=== PATIENT | female | born 1970 | race Caucasian/White ===

== ENCOUNTER → 2016-04-26 | Outpatient (CLI) | payer OTHER | END | disposition home or self-care (01) | LOC: LABWHC1 14:37 | DX: J11.1 Influenza due to unidentified influenza virus with other respiratory manifestations (principal) | CPT/HCPCS: 87502 ==

== ENCOUNTER → 2016-05-06 | Outpatient (CLI) | payer OTHER ==
[2016-05-06 15:51] LABS: Basophils # (A) 0.1 k/uL (0-0.2); Basophils % (A) 1 %; CHCM 32.8; Eosinophils # (A) 0.1 k/uL (0-0.7); Eosinophils % (A) 2 %; HCT 39.7 % (34.0-46.0); HDW 2.62; HGB 13.2 gm/dL (11.4-16.0); Luc # (Auto) 0.22; Luc % (Auto) 3; Lymphocytes # (A) 1.8 k/uL (1.0-4.8); Lymphocytes % (A) 21 %; MCH 28.5 pg (25.0-35.0); MCHC 33.2 g/dL (31.0-37.0); MCV 85.7 fL (80.0-100.0); Mean Platelet Volume 7.9; Monocytes # (A) 0.3 k/uL (0-1.0); Monocytes % (A) 4 %; Neutrophils % (A) 71 %; RBC 4.63 m/uL (3.80-5.40); RDW 14.1 % (11.5-15.5); WBC 8.5 k/uL (3.8-10.6); WBC (Perox) 9.05
[2016-05-06 16:04] LABS: Partial Thromboplastin Time 28.9 sec (22.0-30.0); Prothrombin Time 10.3 sec (9.0-12.0)
[2016-05-06 16:16] LABS: Anion Gap 11 mmol/L; Blood Urea Nitrogen 13 mg/dL (7-17); Calcium 9.7 mg/dL (8.4-10.2); Carbon Dioxide 23 mmol/L (22-30); Chloride 106 mmol/L (98-107); Glucose 84 mg/dL (74-99); Non-African American GFR(MDRD) >60 (>60 ml/min/1.73 sqM); Potassium 4.5 mmol/L (3.5-5.1); Sodium 140 mmol/L (137-145)
== END | disposition home or self-care (01) ==
LOC: LABPAT 15:15
PROVIDERS: ATTEND Obstetrics & Gynecology
DX: Z01.810 Encounter for preprocedural cardiovascular examination (principal); I48.91 Unspecified atrial fibrillation; R58 Hemorrhage, not elsewhere classified
CPT/HCPCS: 80048; 85025; 85610; 85730

== ENCOUNTER 2016-05-12 06:23 | Observation (INO) | payer OTHER ==
[2016-05-06 15:43] VITALS: BMI 32.0
--- NOTE | 2016-05-11 17:13 | P.HPOB ---
History of Present Illness H&P Date: 05/11/16 Chief Complaint: Menorrhagia 45 year old presents for Total Laparoscopic Hysterectomy and BSO with Da Nila. She has been suffering with periods every 2-6 weeks, heavy with clots for a few years. She tried medication which is no longer helping. Her uterus is 9cm with a 3.9cm central fibroid. Review of Systems All systems: negative Constitutional: Denies chills, Denies fever Eyes: denies blurred vision, denies pain Ears, nose, mouth and throat: Denies headache, Denies sore throat Cardiovascular: Denies chest pain, Denies shortness of breath Respiratory: Denies cough Gastrointestinal: Denies abdominal pain, Denies diarrhea, Denies nausea, Denies vomiting Genitourinary: Denies dysuria, Denies hematuria Musculoskeletal: Denies myalgias Integumentary: Denies pruritus, Denies rash Neurological: Denies numbness, Denies weakness Psychiatric: Denies anxiety, Denies depression Endocrine: Denies fatigue, Denies weight change Past Medical History Past Medical History: Atrial Fibrillation Additional Past Medical History / Comment(s): hx. of a-fib in 1999, occasional palpitations History of Any Multi-Drug Resistant Organisms: None Reported Past Surgical History: Breast Surgery, Tonsillectomy Additional Past Surgical History / Comment(s): several breast biopsies Past Anesthesia/Blood Transfusion Reactions: No Reported Reaction Past Psychological History: No Psychological Hx Reported Smoking Status: Never smoker Past Alcohol Use History: Rare Past Drug Use History: None Reported - Past Family History Mother Family Medical History: Cancer Medications and Allergies Home Medications Medication Instructions Recorded Confirmed Type Meclofenamate Sodium 100 mg PO TID PRN 05/06/16 05/06/16 History Allergies Allergy/AdvReac Type Severity Reaction Status Date / Time bee pollen Allergy Anaphylaxis Verified 05/06/16 15:36 Exam Osteopathic Statement: *. No significant issues noted on an osteopathic structural exam other than those noted in the History and Physical/Consult. Heart: RRR Lungs: CTAB Abdomen: soft, nontender Extremeties: neg jie's - OBG Physical Exam Breast: both: normal (no masses) Abdomen: bowel sounds normal, no diffuse tenderness, no bruit present, no guarding noted, no hepatomegaly, no splenomegaly, no mass Vulva: both: normal Vagina: normal moisture, no discharge Cervix: no lesion, no discharge Uterus: normal size, normal contour Adnexa: both: normal Anus/Rectum: normal perianal skin, no rectal mass, no hemorrhoids, heme negative Assessment and Plan (1) Menorrhagia Status: Acute Plan: 1. TLH BSO with da nila
[~2016-05-12 06:23] MED LIST: DEXAMETHASONE SOD PHOSPHATE 10 MG/ML 1 ML VIAL IV ONE; MIDAZOLAM 2 MG/2 ML VIAL IV PRN; ONDANSETRON 4 MG/2 ML VIAL IVP ONE; SCOPOLAMINE 1.5MG/72HR PATCH TRANSDERM ONE; ceFAZolin 2 GM in SODIUM CHLORIDE 0.9% 100 ML IVPB ONE
[2016-05-12 06:35] VITALS: RESP 16
[2016-05-12] MEDS: LIDOCAINE 1% 20 ML VIAL (10MG/ML) FOR IV START INTRADERMA PRN ×2 (06:35→06:36)
[2016-05-12] MEDS: LACTATED RINGERS 1,000 ML IV SCH ×2 (06:36→23:47)
[2016-05-12] MEDS ORDERED: fentaNYL (PF) 50 MCG/ML 2 ML AMP ONE (07:04)
[2016-05-12] MEDS ORDERED: KETOROLAC 30 MG/ML 1 ML VIAL ONE (07:04)
[2016-05-12] MEDS ORDERED: NEOSTIGMINE 1 MG/ML 10 ML VIAL ONE (07:04)
[2016-05-12] MEDS ORDERED: SUCCINYLCHOLINE CHLORIDE 100 MG/5 ML SYR IV ONE (07:04)
[2016-05-12] MEDS ORDERED: GLYCOPYRROLATE 0.2 MG/ML 2 ML VIAL ONE (07:04)
[2016-05-12] MEDS ORDERED: LIDOCAINE 1% INJ 10MG/ML (20 ML MDV) ONE (07:04)
[2016-05-12] MEDS ORDERED: PROPOFOL 10 MG/ML 20 ML VIAL IV ONE (07:04)
[2016-05-12] MEDS ORDERED: ROCURONIUM BROMIDE 10 MG/ML 10 ML VIAL IV ONE (07:04)
[2016-05-12] MEDS ORDERED: MIDAZOLAM 2 MG/2 ML VIAL ONE (07:04)
[2016-05-12] MEDS ORDERED: BUPIVACAINE (PF) 0.25% 30 ML VIAL SQ ONE (07:53)
--- NOTE | 2016-05-12 08:28 | P.OP ---
Date of Procedure: 05/12/16 Preoperative Diagnosis: 1. Menorrhagia Postoperative Diagnosis: 1. Menorrhagia Procedure(s) Performed: Total laparoscopic hysterectomy bilateral salpingo-oophorectomy using da Kelly Anesthesia: MICHELLE Surgeon: Abby Rm Culinary Arts Teacher #1: Negrito Delacruz Estimated Blood Loss (ml): 20 IV fluids (ml): 700 Urine output (ml): 100 Pathology: other (Uterus, cervix, bilateral tubes and ovaries) Condition: stable Disposition: PACU Operative Findings: Normal uterus tubes and ovaries Description of Procedure: Patient taken the operating room where general anesthesia was obtained without difficulty. She is prepped and draped in normal sterile fashion dorsal lithotomy position, legs placed in the Sg stirrups. Weighted speculum placed in the vagina and the anterior lip the cervix was grasped with single- tooth tenaculum. The uterus sounded to 8 cm and the cervix diameter was 3.5 cm. The appropriate manipulator tip and ring were placed on the Maribel manipulator. The Maribel manipulator was then placed in the uterus. Pool catheter was also placed. Attention was then turned to the abdomen and gloves were changed. A 5 mm supraumbilical incision was made the scalpel and a 5 mm optical trocar was placed under direct visualization. 10 cm to the right of this and 2 cm down a 5 mm incision was made and 8 mm da Kelly port was placed under direct visualization. Same measurements on the opposite side of the patient's abdomen, the 5 mm incision was made and 8 mm da Kelly port was placed under direct visualization. In the left upper quadrant a 10 mm incision was made and a 10 mm optical trocar was placed under direct visualization. The 5 mm optical trocar was then replaced with the 8 mm da Kelly camera port. The robot was docked on patient's right side. The camera was introduced and then the monopolar curved scissor and [place] bipolar placed under direct visualization. I broke scrub and went to the physician console. The left infundibulopelvic ligament was cauterized with the [place] bipolar and cut with monopolar curved scissors. The left round ligament was cauterized with the [place] bipolar and cut with monopolar curved scissors. The posterior leaf of the broad ligament was taken down using the monopolar curved scissors. Anterior leaf of the broad ligament was then taken down using the monopolar curved scissors. The uterine artery was cauterized with the [place] bipolar and cut with monopolar curved scissors. The bladder flap was then started using the monopolar curved scissors. Attention was then turned to the right side of the patient's anatomy and the right infundibular pelvic ligament was cauterized with the [place] bipolar and cut with monopolar curved scissors. The right round ligament was cauterized with the [place] bipolar and cut with monopolar curved scissors. Posterior leaf of the broad ligament was taken down using the monopolar curved scissors and the anterior leaf was taken down using the monopolar curved scissors. The uterine artery was cauterized the [place] bipolar cut with monopolar curved scissors. The bladder flap was then finished on this side. Anterior colpotomy was made using the monopolar curved scissors. The rest of the uterus was from the vaginal cuff by following the ring around with the monopolar curved scissors through the uterosacral ligaments back to the anterior portion. Once the uterus and cervix were amputated they were pulled through the vaginal cuff. Hemostasis was assured. The instruments were changed for the Cardier forcep and the wilfrido suture cut. The vaginal cuff was then closed using O stratafix barbed suture in a running fashion. Hemostasis was again assured and the pelvis was irrigated. All instruments were removed from the abdomen and the robot was undocked. I scrubbed back in to perform a cystoscopy. There were jets from both ureteral orifices. The abdominal incisions were closed with 4-0 Vicryl in a subcuticular fashion. Patient tolerated the procedure well, sponge and instrument counts correct 2 and she was taken to recovery room in stable condition condition
[2016-05-12] MEDS: HYDROmorphone 1 MG/ML 1 ML SYRINGE IVP PRN ×4 (09:09→09:40)
[2016-05-12] MEDS ORDERED: ONDANSETRON 4 MG/2 ML VIAL IVP ONE (09:16)
[2016-05-12] MEDS ORDERED: Acetaminophen-Codeine 300-30mg TAB PO PRN (10:36)
[2016-05-12] MEDS ORDERED: SIMETHICONE 80 MG CHEWABLE PO PRN (10:36)
[2016-05-12] MEDS ORDERED: diphenhydrAMINE 50 MG/ML 1 ML VIAL IVP PRN (10:36)
[2016-05-12] MEDS ORDERED: METOCLOPRAMIDE 5 MG/ML 2 ML VIAL IVP PRN (10:36)
[2016-05-12] MEDS ORDERED: IBUPROFEN 600 MG TAB PO PRN (10:36)
[2016-05-12] MEDS ORDERED: ONDANSETRON 4 MG/2 ML VIAL IVP PRN (10:36)
[2016-05-12] MEDS: KETOROLAC 30 MG/ML 1 ML VIAL IVP PRN (14:59)
[2016-05-12] MEDS ORDERED: TEMAZEPAM 7.5 MG CAP PO PRN (16:14)
[2016-05-12] MEDS: Acetaminophen-Codeine 300-30mg TAB PO PRN (23:47)
[2016-05-13] MEDS: Acetaminophen-Codeine 300-30mg TAB PO PRN (06:51)
[2016-05-13] MEDS: KETOROLAC 30 MG/ML 1 ML VIAL IVP PRN (06:53)
[2016-05-13 07:08] LABS: Basophils # (A) 0.1 k/uL (0-0.2); Basophils % (A) 1 %; CH 27.8; CHCM 31.9; Eosinophils # (A) 0.1 k/uL (0-0.7); Eosinophils % (A) 1 %; HCT 35.2 % (34.0-46.0); HDW 2.52; Luc # (Auto) 0.19; Luc % (Auto) 3; Lymphocytes # (A) 2.2 k/uL (1.0-4.8); Lymphocytes % (A) 28 %; MCH 27.3 pg (25.0-35.0); MCHC 31.2 g/dL (31.0-37.0); MCV 87.4 fL (80.0-100.0); Monocytes # (A) 0.3 k/uL (0-1.0); Monocytes % (A) 4 %; Neutrophils # (A) 4.9 k/uL (1.3-7.7); Neutrophils % (A) 64 %; RBC 4.02 m/uL (3.80-5.40); RDW 14.2 % (11.5-15.5); WBC 7.7 k/uL (3.8-10.6); WBC (Perox) 8.58
--- NOTE | 2016-05-13 07:32 | P.DS ---
Providers Date of admission: 05/13/16 06:54 Expected date of discharge: 05/13/16 Attending physician: Abby Rm Primary care physician: Stated None - Discharge Diagnosis(es) (1) Menorrhagia Current Visit: Yes Status: Resolved (2) History of robot-assisted laparoscopic hysterectomy Current Visit: Yes Status: Acute Hospital Course: Patient presented for [facility] BSO with da nila. She underwent this procedure without complication. Her post op course was uncomplicated. She is tolerating a reg diet. Pain is well controlled. Denies N/V, F/C, CP, SOB, calf pain. She will be discharged home POD #1 in stable condition to follow up with me in 3 weeks. Plan - Discharge Summary New Discharge Prescriptions: HYDROcodone/APAP 7.5-325MG [N[place]rop 7.5-325] 1 tab PO Q6HR PRN #30 tab PRN Reason: Pain Ibuprofen [Motrin] 600 mg PO Q6HR PRN #30 tab PRN Reason: Mild Discomfort Discharge Medication List Meclofenamate Sodium 100 mg PO TID PRN 05/06/16 [History] HYDROcodone/APAP 7.5-325MG [Nathrop 7.5-325] 1 tab PO Q6HR PRN #30 tab 05/13/16 [ Rx] Ibuprofen [Motrin] 600 mg PO Q6HR PRN #30 tab 05/13/16 [Rx] Follow up Appointment(s)/Referral(s): Abby Rm DO [Doctor of Osteopathic Medicine] - 06/03/16 Patient Instructions/Handouts: Scopolamine (Absorbed through the skin) Discharge Disposition: HOME SELF-CARE
[2016-05-13 07:59] VITALS: BP 141/72; PULSE 50
[2016-05-13 09:49] VITALS: TEMP 0
== END 2016-05-13 11:00 | disposition home or self-care (01) ==
LOC: OR 06:23 → 6PED 08:23 → OR 05-13 06:54 → 6PED 05-13 06:54
PROVIDERS: ADMIT Obstetrics & Gynecology; ATTEND Obstetrics & Gynecology
DX: D25.0 Submucous leiomyoma of uterus (principal); N80.0 Endometriosis of uterus; N92.0 Excessive and frequent menstruation with regular cycle; J30.1 Allergic rhinitis due to pollen; Z80.9 Family history of malignant neoplasm, unspecified
CPT/HCPCS: 58571; S2900; 81025; 85025; 86850; 86900; 86901; 88307; 88341; 88342

== ENCOUNTER → 2016-10-05 | Outpatient (CLI) | payer OTHER ==
[2016-10-05 10:21] LABS: ALT 41 U/L (9-52); AST 26 U/L (14-36); Alkaline Phosphatase 65 U/L (38-126); Anion Gap 10 mmol/L; Blood Urea Nitrogen 14 mg/dL (7-17); Calcium 9.9 mg/dL (8.4-10.2); Carbon Dioxide 27 mmol/L (22-30); Chloride 104 mmol/L (98-107); Cholesterol 178 mg/dL (<200); Glucose 92 mg/dL (74-99); HDL Cholesterol 71 mg/dL (40-60); Non-African American GFR(MDRD) >60 (>60 ml/min/1.73 sqM); Potassium 4.2 mmol/L (3.5-5.1); Sodium 141 mmol/L (137-145); Total Bilirubin 0.6 mg/dL (0.2-1.3)
--- NOTE | 2016-10-05 14:49 | MM ---
Reason for exam: additional evaluation requested from prior study. Last mammogram was performed 10 months ago. History: Patient is postmenopausal. Family history of premenopausal breast cancer in mother at age 38. Benign MG stereo VAD BX LT of the left breast, May 15, 2015. Excisional biopsy of the left breast, August 2009. Benign ultrasound-guided core biopsy of the right breast, January 23, 2002. Core biopsy of the right breast. Physical Findings: Nurse did not find any significant physical abnormalities on exam. MG 3D Diag Mammo W/Cad CECE Bilateral CC and MLO view(s) were taken. Prior study comparison: November 23, 2015, left breast MG 3d diag mammo w/cad LT. March 11, 2015, bilateral MG 3d screening mammo w/cad. May 10, 2011, bilateral digital screening mammo w/CAD. The breast tissue is heterogeneously dense. This may lower the sensitivity of mammography. Stable left breast masses. Stable benign bilateral calcifications. No significant new findings when compared with previous films. These results were verbally communicated with the patient and result sheet given to the patient on 10/05/16. ASSESSMENT: Benign, BI-RAD 2 RECOMMENDATION: Routine screening mammogram of both breasts in 1 year.
== END | disposition home or self-care (01) ==
LOC: RADMAMWWP 09:32
PROVIDERS: ATTEND Family Medicine
DX: Z00.00 Encounter for general adult medical examination without abnormal findings (principal); R92.8 Other abnormal and inconclusive findings on diagnostic imaging of breast; Z13.820 Encounter for screening for osteoporosis
CPT/HCPCS: 84439; 80061; 80053; 84443; 36415; G0204; G0279

== ENCOUNTER → 2018-10-23 | Outpatient (CLI) | payer MEDICAID ==
[2018-10-23 12:12] LABS: Basophils # (A) 0.1 k/uL (0-0.2); Basophils % (A) 1 %; Eosinophils # (A) 0.2 k/uL (0-0.7); Eosinophils % (A) 3 %; HCT 48.3 % (34.0-46.0); HGB 15.7 gm/dL (11.4-16.0); Lymphocytes # (A) 1.6 k/uL (1.0-4.8); Lymphocytes % (A) 22 %; MCH 30.5 pg (25.0-35.0); MCHC 32.5 g/dL (31.0-37.0); MCV 93.9 fL (80.0-100.0); Mean Platelet Volume 7.2; Monocytes # (A) 0.4 k/uL (0-1.0); Monocytes % (A) 5 %; Neutrophils # (A) 5.1 k/uL (1.3-7.7); Neutrophils % (A) 68 %; Platelet Count 327 k/uL (150-450); RBC 5.14 m/uL (3.80-5.40); RDW 12.9 % (11.5-15.5); WBC 7.5 k/uL (3.8-10.6)
[2018-10-23 18:27] LABS: African American GFR (CKD) 117.1 (60.0-200.0); Albumin 4.6 g/dL (3.80-4.90); Albumin/Globulin Ratio 2.42 (1.60-3.17); Anion Gap 4.1 mmol/L (4.00-12.00); BUN/Creat Ratio 15.71 Ratio (12.00-20.00); Carbon Dioxide 30.9 mmol/L (21.6-31.8); Chol/HDL Ratio 2.36; Globulin 1.9 g/dL (1.6-3.3); Potassium 4.7 mmol/L (3.5-5.5); Total Bilirubin 0.7 mg/dL (0.2-1.2); Total Protein 6.5 g/dL (6.2-8.2)
[2018-10-23 18:30] LABS: T4, Free (Free Thyroxine) 0.9 ng/dL (0.80-1.80)
== END | disposition home or self-care (01) ==
LOC: LABWHC1 11:34
PROVIDERS: ATTEND Family Medicine
DX: Z00.00 Encounter for general adult medical examination without abnormal findings (principal); G47.00 Insomnia, unspecified; Z68.32 Body mass index [BMI] 32.0-32.9, adult
CPT/HCPCS: 36415; 80053; 80061; 84439; 84443; 85025

== ENCOUNTER → 2018-11-15 | Outpatient (CLI) | payer MEDICAID ==
--- NOTE | 2018-11-15 14:27 | MM ---
Reason for exam: screening (asymptomatic). Last mammogram was performed 2 years and 1 month ago. History: Patient is postmenopausal. Family history of premenopausal breast cancer in mother at age 38. Benign MG stereo VAD BX LT of the left breast, May 15, 2015. Excisional biopsy of the left breast, August 2009. Benign ultrasound-guided core biopsy of the right breast, January 23, 2002. Core biopsy of the right breast. Physical Findings: A clinical breast exam by your physician is recommended on an annual basis and results should be correlated with mammographic findings. MG 3D Screening Mammo W/Cad Bilateral CC and MLO view(s) were taken. Prior study comparison: October 05, 2016, bilateral MG 3d diag mammo w/cad CECE. November 23, 2015, left breast MG 3d diag mammo w/cad LT. The breast tissue is heterogeneously dense. This may lower the sensitivity of mammography. Finding #1: There is a 17 mm circumscribed oval mass in the right breast. Finding #2: There are typically benign round calcifications in the left breast. Previous mammotome biopsy in the left breast. There is a chronic nodularity bilaterally. ASSESSMENT: Incomplete: need additional imaging evaluation, BI-RAD 0 RECOMMENDATION: Special view mammogram and ultrasound of the right breast. [facility] will attempt to contact patient to return for supplemental views and ultrasound.
== END | disposition home or self-care (01) ==
LOC: RADMAMWWP 11:31
PROVIDERS: ATTEND Family Medicine
DX: Z12.31 Encounter for screening mammogram for malignant neoplasm of breast (principal)
CPT/HCPCS: 77063; 77067

== ENCOUNTER → 2018-11-27 | Outpatient (CLI) | payer MEDICAID ==
--- NOTE | 2018-11-28 08:28 | MM ---
Reason for exam: additional evaluation requested from abnormal screening. Last mammogram was performed less than 1 month ago. History: Patient is postmenopausal. Family history of premenopausal breast cancer in mother at age 38. Benign MG stereo VAD BX LT of the left breast, May 15, 2015. Excisional biopsy of the left breast, August 2009. Benign ultrasound-guided core biopsy of the right breast, January 23, 2002. Core biopsy of the right breast. Physical Findings: Nurse did not find any significant physical abnormalities on exam. MG 3D Work Up W/Cad RT LM and spot compression MLO view(s) were taken of the right breast. Prior study comparison: November 15, 2018, bilateral MG 3d screening mammo w/cad. October 05, 2016, bilateral MG 3d diag mammo w/cad CECE. The breast tissue is heterogeneously dense. This may lower the sensitivity of mammography. There is a persistent low density upper outer quadrant mass 9mm in size. This is 7-8cm from nipple at middle depth. These results were verbally communicated with the patient and result sheet given to the patient on 11/27/18. ASSESSMENT: Incomplete: need additional imaging evaluation, BI-RAD 0 RECOMMENDATION: Ultrasound of the right breast. upper outer quadrant
--- NOTE | 2018-11-28 08:31 | USB ---
Reason for exam: additional evaluation requested from abnormal screening. History: Patient is postmenopausal. Family history of premenopausal breast cancer in mother at age 38. Benign MG stereo VAD BX LT of the left breast, May 15, 2015. Excisional biopsy of the left breast, August 2009. Benign ultrasound-guided core biopsy of the right breast, January 23, 2002. Core biopsy of the right breast. US Breast Workup Limited RT Right limited breast ultrasound including focal area of concern, retroareolar and axilla demonstrates a 0.7 x 0.4 x 0.6cm oval, hypoechoic, questionable node at 10 o'clock. No sonographic correlate. 6 month follow up recommended as this mass is low density and similar to adjacent heterogenous fibroglandular tissue. Patient describes recent weight loss. These results were verbally communicated with the patient and result sheet given to the patient on 11/27/18. ASSESSMENT: Probably benign, BI-RAD 3 RECOMMENDATION: Follow-up diagnostic mammogram of the right breast in 6 months.
== END ==
LOC: RADMAMWWP 13:34
PROVIDERS: ATTEND Family Medicine
DX: R92.8 Other abnormal and inconclusive findings on diagnostic imaging of breast (principal)
CPT/HCPCS: 77061; 77065

== ENCOUNTER → 2019-10-28 | Outpatient (CLI) | payer MEDICAID | END | disposition home or self-care (01) | LOC: LABWHC1 11:57 | PROVIDERS: ATTEND Family Medicine | DX: Z03.818 Encounter for observation for suspected exposure to other biological agents ruled out (principal) | CPT/HCPCS: U0003; C9803 ==

== ENCOUNTER → 2020-03-09 | Outpatient (CLI) | payer MEDICAID ==
--- NOTE | 2020-03-10 09:37 | MM ---
Reason for exam: additional evaluation requested from prior study. Last mammogram was performed 1 year and 3 months ago. History: Patient is postmenopausal. Family history of premenopausal breast cancer in mother at age 38. Benign MG stereo VAD BX LT of the left breast, May 15, 2015. Excisional biopsy of the left breast, August 2009. Benign ultrasound-guided core biopsy of the right breast, January 23, 2002. Core biopsy of the right breast. Physical Findings: Nurse did not find any significant physical abnormalities on exam. MG 3D Diag Mammo W/Cad CECE Bilateral CC and MLO view(s) were taken. Prior study comparison: November 15, 2018, bilateral MG 3d screening mammo w/cad. October 05, 2016, bilateral MG 3d diag mammo w/cad CECE. March 11, 2015, bilateral MG 3d screening mammo w/cad. Previous mammotome biopsy in the left breast. There is chronic nodularity bilaterally. Superior central asymmetric density on the left incompletely disperses. Medial left asymmetric density becomes less defined. These results were verbally communicated with the patient and result sheet given to the patient on 03/09/20. ASSESSMENT: Incomplete: need additional imaging evaluation, BI-RAD 0 RECOMMENDATION: Ultrasound of the left breast. 9-3 o'clock.
--- NOTE | 2020-03-10 09:39 | USB ---
Reason for exam: additional evaluation requested from abnormal screening. History: Patient is postmenopausal. Family history of premenopausal breast cancer in mother at age 38. Benign MG stereo VAD BX LT of the left breast, May 15, 2015. Excisional biopsy of the left breast, August 2009. Benign ultrasound-guided core biopsy of the right breast, January 23, 2002. Core biopsy of the right breast. US Breast Limited LT Technologist: Liana Polk Left limited breast ultrasound including focal area of concern, retroareolar and axilla demonstrates a 0.2 x 0.2 x 0.3cm circular lesion too small to characterize at 10 o'clock, 6 month follow up recommended, a 0.5 x 0.3 x 0.2cm lesion too small to characterize at 3 o'clock, possibly cystic and duct at 3 o'clock. Scanned 9-3 o'clock. These results were verbally communicated with the patient and result sheet given to the patient on 03/09/20. ASSESSMENT: Probably benign, BI-RAD 3 RECOMMENDATION: Follow-up diagnostic mammogram and ultrasound of the left breast in 6 months.
== END | disposition home or self-care (01) ==
LOC: RADMAMWWP 13:35
PROVIDERS: ATTEND Family Medicine
DX: R92.8 Other abnormal and inconclusive findings on diagnostic imaging of breast (principal)
CPT/HCPCS: 77062; 77066

== ENCOUNTER → 2020-11-09 | Outpatient (CLI) | payer MEDICAID | END | disposition home or self-care (01) | LOC: LABMAIN 16:18 | PROVIDERS: ATTEND Physician Assistant Medical | DX: Z20.822 Contact with and (suspected) exposure to COVID-19 (principal) | CPT/HCPCS: 87635 ==

== ENCOUNTER → 2020-12-07 | Outpatient (CLI) | payer MEDICAID ==
--- NOTE | 2020-12-08 08:19 | MM ---
Reason for exam: follow-up at short interval from prior study. Last mammogram was performed 9 months ago. History: Patient is postmenopausal. Family history of premenopausal breast cancer in mother at age 38. Benign MG stereo VAD BX LT of the left breast, May 15, 2015. Excisional biopsy of the left breast, August 2009. Benign ultrasound-guided core biopsy of the right breast, January 23, 2002. Core biopsy of the right breast. Physical Findings: Nurse did not find any significant physical abnormalities on exam. MG 3D Diag Mammo W/Cad CECE Bilateral CC and MLO view(s) were taken. Prior study comparison: March 09, 2020, bilateral MG 3d diag mammo w/cad CECE. November 27, 2018, right breast MG 3d work up w/cad RT. The breast tissue is heterogeneously dense. This may lower the sensitivity of mammography. There is chronic nodularity in the right breast. Central posterior left MLO asymmetric density disperses on additional views. No significant new findings when compared with previous films. These results were verbally communicated with the patient and result sheet given to the patient on 12/07/20. ASSESSMENT: Benign, BI-RAD 2 RECOMMENDATION: Routine screening mammogram of both breasts in 1 year.
== END | disposition home or self-care (01) ==
LOC: RADMAMWWP 14:45
PROVIDERS: ATTEND Family Medicine
DX: N64.89 Other specified disorders of breast (principal); Z80.3 Family history of malignant neoplasm of breast
CPT/HCPCS: 77062; 77066

== ENCOUNTER → 2020-12-07 | Outpatient (CLI) | payer MEDICAID ==
[2020-12-07 15:19] LABS: HCT 42.7 % (37.2-46.3); MCHC 32.8 g/dL (32.0-37.0); MCV 97.7 fL (80.0-97.0); Platelet Count 279 X 10*3/uL (140-440); RBC 4.37 X 10*6/uL (4.10-5.20); RDW 14.8 % (11.5-14.5)
[2020-12-07 15:43] LABS: African American GFR (CKD) 137.5 (60.0-200.0); Albumin 4.2 g/dL (3.8-4.9); Albumin/Globulin Ratio 1.64 (1.60-3.17); Anion Gap 14.8 mmol/L (4.00-12.00); BUN/Creat Ratio 15.39 Ratio (12.00-20.00); Blood Urea Nitrogen 6.3 mg/dL (9.0-27.0); Calcium 9.3 mg/dL (8.7-10.3); Carbon Dioxide 24.7 mmol/L (21.6-31.8); Chol/HDL Ratio 2.95 Ratio; Globulin 2.5 g/dL (1.6-3.3); HDL Cholesterol 76.2 mg/dL (40.00-60.00); LDL Cholesterol,Calculated 104.4 mg/dL (0.0-131.0); Non-African American GFR(CKD) 118.6 (60.0-200.0); Potassium 4.8 mmol/L (3.5-5.5); Total Bilirubin 0.5 mg/dL (0.30-1.20); Total Protein 6.7 g/dL (6.2-8.2); VLDL Calculation 44.4 mg/dL (5.00-40.00)
== END | disposition home or self-care (01) ==
LOC: LABWHC1 09:56
PROVIDERS: ATTEND Family Medicine
DX: Z70.0 Counseling related to sexual attitude (principal)
CPT/HCPCS: 36415; 80053; 80061; 85027

== ENCOUNTER 2023-05-16 13:28 | Emergency (ER) | payer MEDICAID ==
--- NOTE | 2023-05-16 14:00 | ED ---
Lower Extremity Injury HPI - General Chief Complaint: Extremity Injury, Lower Stated Complaint: fall, ankle injury Time Seen by Provider: 05/16/23 13:59 Source: patient, RN notes reviewed Mode of arrival: wheelchair Limitations: no limitations - History of Present Illness Initial Comments: Patient is a 52-year-old female presented to the ER with chief complaint of right ankle injury. Patient states she was playing paint ball yesterday and injured her ankle. She is endorsing most of her pain over the lateral malleolus. She states she has not been able to bear weight since incident. Denies any paresthesias or other injuries. She states she has been taking [id number] Motrin without relief of her pain. No other complaints at this time. - Related Data Home Medications Medication Instructions Recorded Confirmed Meclofenamate Sodium 100 mg PO TID PRN 05/06/16 05/13/16 Previous Rx's Medication Instructions Recorded HYDROcodone/APAP 7.5-325MG [Black Diamond 1 tab PO Q6HR PRN #30 tab 05/13/16 7.5-325] Ibuprofen [Motrin] 600 mg PO Q6HR PRN #30 tab 05/13/16 HYDROcodone/APAP 5-325MG [Black Diamond 5] 1 each PO Q6HR PRN #12 tab 05/16/23 Allergies Allergy/AdvReac Type Severity Reaction Status Date / Time bee pollen Allergy Anaphylaxis Verified 05/12/16 10:38 Review of Systems ROS Statement: Those systems with pertinent positive or pertinent negative responses have been documented in the HPI. ROS Other: All systems not noted in ROS Statement are negative. Past Medical History Past Medical History: Atrial Fibrillation Additional Past Medical History / Comment(s): hx. of a-fib in 1999, occasional palpitations History of Any Multi-Drug Resistant Organisms: None Reported Past Surgical History: Breast Surgery, Hysterectomy, Tonsillectomy Additional Past Surgical History / Comment(s): several breast biopsies Past Anesthesia/Blood Transfusion Reactions: No Reported Reaction Past Psychological History: No Psychological Hx Reported Past Alcohol Use History: Rare Past Drug Use History: None Reported - Past Family History Mother Family Medical History: Cancer General Exam Limitations: physical limitation General appearance: alert, in no apparent distress Head exam: Present: atraumatic, normocephalic, normal inspection Eye exam: Present: normal appearance, PERRL, EOMI. Absent: scleral icterus, conjunctival injection, periorbital swelling Respiratory exam: Present: normal lung sounds bilaterally. Absent: respiratory distress, wheezes, rales, rhonchi, stridor Cardiovascular Exam: Present: regular rate, normal rhythm, normal heart sounds. Absent: systolic murmur, diastolic murmur, rubs, gallop, clicks Extremities exam: Present: tenderness (Edema and mild ecchymosis to right lateral malleolus. 2+ right dorsalis pedis pulse. Sensation intact. Patient has full active range of motion of digits. Limited active range of motion of ankle due to pain.) Neurological exam: Present: alert, oriented X3, CN II-XII intact Psychiatric exam: Present: normal affect, normal mood Skin exam: Present: warm, dry, intact, normal color. Absent: rash Course Vital Signs 05/16/23 05/16/23 13:51 16:05 Temperature 98.5 F 98.2 F Pulse Rate 60 63 Respiratory 16 18 Rate Blood Pressure 142/85 153/79 O2 Sat by Pulse 98 99 Oximetry Procedures - Orthopedic Splinting/Casting Injury #1 Side: right Lower Extremity Injury Location: ankle Lower Extremity Immobilizer: posterior splint, stirrup splint Other Orthopedic Equipment: crutches Medical Decision Making - Medical Decision Making Was pt. sent in by a medical professional or institution ([facility], EMERGENCY SPECIALIST, urgent care, hospital, or alf...) When possible be specific @ -No Did you speak to anyone other than the patient for history (EMS, parent, family, police, friend...)? What history was obtained from this source @ -No Did you review nursing and triage notes (agree or disagree)? Why? @ -I reviewed and agree with nursing and triage notes Were old charts reviewed (outside hosp., previous admission, EMS record, old EKG, old radiological studies, urgent care reports/EKG's, alf records)? Report findings @ -No old charts were reviewed Differential Diagnosis (chest pain, altered mental status, abdominal pain women, abdominal pain men, vaginal bleeding, weakness, fever, dyspnea, syncope, headache, dizziness, GI bleed, back pain, seizure, CVA, palpatations, mental health, musculoskeletal)? @ -Differential Musculoskeletal: Muscular strain, contusion, ligament sprain, fracture, arthritis, septic arthritis, bursitis, cellulitis, muscle spasm, nerve compression, DVT, arterial occlusion, herpes zoster, electrolyte abnormality, tumor.... This is not meant to be in all inclusive list EKG interpreted by me (3pts min.). @ -None X-rays interpreted by me (1pt min.). @ -X-ray right ankle interpreted by me significant for acute fracture of the distal fibula with minimal displacement. The fracture lines 1 extends into the tibiotalar joint. Buckling of the posterior cortex of the fibula. Calcaneal plantar spurring. CT interpreted by me (1pt min.). @ -None done U/S interpreted by me (1pt. min.). @ -None done What testing was considered but not performed or refused? (CT, X-rays, U/S, labs)? Why? @ -None What meds were considered but not given or refused? Why? @ -None Did you discuss the management of the patient with other professionals (pro fessionals i.e. , PA, EMERGENCY SPECIALIST, lab, RT, psych nurse, hospice social worker, business intelligence consultant, teacher, [employer] revenue officer, family caseworker)? Give summary @ -No Was smoking cessation discussed for >3mins.? @ -No Was critical care preformed (if so, how long)? @ -No Were there social determinants of health that impacted care today? How? (Homelessness, low income, unemployed, alcoholism, drug addiction, transportation, low edu. Level, literacy, decrease access to med. care, snf, rehab)? @ -No Was there de-escalation of care discussed even if they declined (Discuss DNR or withdrawal of care, Hospice)? DNR status @ -No What co-morbidities impacted this encounter? (DM, HTN, Smoking, COPD, CAD, Cancer, CVA, ARF, Chemo, Hep., AIDS, mental health diagnosis, sleep apnea, morbid obesity)? @ -None Was patient admitted / discharged? Hospital course, mention meds given and route, prescriptions, significant lab abnormalities, going to OR and other pertinent info. @ -Discharge. Patient is a 52 year old femal epresenting to the ER with a chief compliant of right ankle injury. History and physical exam completed. Vitals stable. Patient in no signs of acute distress and non toxic appearing. Right lower extremity neurovascularly intact. Significant edema and ecchymosis to right lateral malleolus. X-rays obtained significant for a distal fibular fracture with minimal displacement. The fracture lines 1 extends into the tibiotalar joint. Buckling of the posterior cortex of the fibula. Calcaneal plantar spurring. Patient placed in a posterior and stirrup splint. Patient received Dilaudid and prescribed Black Diamond. Advised to follow-up with orthopedics in the next 1 to 2 days. Referral given. Patient discharged stable condition with follow-up to orthopedics. Patient's expressed understanding and agreement with care plan. Case discussed with ED attending, Dr. Duarte. Undiagnosed new problem with uncertain prognosis? @ -No Drug Therapy requiring intensive monitoring for toxicity (Heparin, Nitro, Insulin, Cardizem)? @ -No Were any procedures done? @ -Yes Diagnosis/symptom? @ -Fibula fracture Acute, or Chronic, or Acute on Chronic? @ -Acute Uncomplicated (without systemic symptoms) or Complicated (systemic symptoms)? @ -Uncomplicated Side effects of treatment? @ -No Exacerbation, Progression, or Severe Exacerbation? @ -No Poses a threat to life or bodily function? How? (Chest pain, [place], [place], pneumonia, PE, COPD, DKA, ARF, appy, cholecystitis, CVA, Diverticulitis, Homicidal, Suicidal, threat to staff... and all critical care pts) @ -No - Radiology Data Radiology results: report reviewed, image reviewed Disposition Clinical Impression: Fracture of fibula Disposition: HOME SELF-CARE Condition: Stable Instructions (If sedation given, give patient instructions): Ankle Fracture (ED) Additional Instructions: Please follow-up with orthopedics in the next 1 to 2 days. Remain non-weight bearing. Alternate [id number] ibuprofen with Black Diamond for pain control. Return to the ER for any new or worsening symptoms. Prescriptions: HYDROcodone/APAP 5-325MG [Black Diamond 5] 1 each PO Q6HR PRN #12 tab PRN Reason: Pain Is patient prescribed a controlled substance at d/c from ED?: No Referrals: Ermias Pierce MD [Primary Care Provider] - 1-2 days John Allen DO [Doctor of Osteopathic Medicine] - 1-2 days Time of Disposition: 15:12
[2023-05-16] MEDS: KETOROLAC 15 MG/ML 1 ML VIAL IM STA (14:15)
--- NOTE | 2023-05-16 14:46 | XR ---
EXAMINATION TYPE: XR ankle complete RT DATE OF EXAM: 05/16/2023 2:19 PM CLINICAL INDICATION:Female, 52 years old with history of injury; H COMPARISON: None TECHNIQUE: XR ankle complete RT; ankle is imaged in frontal, lateral and oblique projections. FINDINGS/IMPRESSION: 1. Acute fracture the distal fibula with minimal displacement. There is at least 2 fracture lines on e extends into the tibiotalar joint. There is associated soft tissue edema. Buckling of the posterior cortex of the fibula. 2. Calcaneal plantar spurring.
[2023-05-16] MEDS ORDERED: HYDROcodone/APAP 5-325MG 1 EACH TAB PO STA (15:27)
[2023-05-16] MEDS: HYDROmorphone 0.5 MG/0.5 ML SYRINGE IM STA (15:57)
[2023-05-16 16:28] VITALS: BP 153/79; PULSE 63; RESP 18; TEMP 98.2
== END 2023-05-16 16:07 | disposition home or self-care (01) ==
LOC: EC 13:28
DX: S82.831A Other fracture of upper and lower end of right fibula, initial encounter for closed fracture (principal); Z91.030 Bee allergy status; W18.30XA Fall on same level, unspecified, initial encounter; X50.1XXA Overexertion from prolonged static or awkward postures, initial encounter; Y93.89 Activity, other specified
CPT/HCPCS: 73610; 29515; 99283; 96372 ×2; J1885; J1170